=== PATIENT | female | born 1980 | race African-American/Black ===

== ENCOUNTER 2017-06-11 11:40 | Emergency (ER) | payer OTHER ==
[2017-06-11 12:07] LABS: URINE HCG POC HCG NEGATIVE (Negative)
[2017-06-11 13:12] LABS: AGAP ISTAT 21 mmol/L (6-14); BUN ISTAT 11 mg/dL (8-26); CHLORIDE ISTAT 96 mmol/L (98-110); GLUCOSE ISTAT 93 mg/dL (70-99); HEMATOCRIT ISTAT 37 % (36-40); HEMOGLOBIN ISTAT 12.6 g/dL (12-15); ION CA ISTAT 1.19 mmol/L (1.13-1.32); POTASSIUM ISTAT 3.9 mmol/L (3.5-5.0); SODIUM ISTAT 138 mmol/L (135-145); TOT CO2 ISTAT 26 mmol/L (23-32)
== END 2017-06-11 13:19 | disposition home or self-care (01) ==
LOC: ER 11:40
DX: N92.4 Excessive bleeding in the premenopausal period (principal); Z98.51 Tubal ligation status
CPT/HCPCS: 36415; 80047; 81025; 85014; 85018; 99283